=== PATIENT | female | born 1995 | race Two or more races ===

== ENCOUNTER 2022-02-15 06:29 | Inpatient (IN) | payer OTHER ==
[~2022-02-15] VITALS: Ht 175.3 cm; Wt 2.7 kg
[2022-02-15] MEDS ORDERED: PRENATAL TABLE1 EAC1 PO (09:01)
== END 2022-02-17 18:42 | disposition home or self-care (01) | DRG 786 ==
LOC: LDR 06:29 → OB/GYN 11:59
PROVIDERS: ADMIT Specialist; ATTEND Specialist
PROC: 10D00Z1 Extraction of Products of Conception, Low, Open Approach (ICD-10-PCS; principal; 2022-02-17)
PROC: 4A1HXCZ Monitoring of Products of Conception, Cardiac Rate, External Approach (ICD-10-PCS; 2022-02-17)
DX: O76 Abnormality in fetal heart rate and rhythm complicating labor and delivery (principal); O60.14X0 Preterm labor third trimester with preterm delivery third trimester, not applicable or unspecified; O69.81X0 Labor and delivery complicated by cord around neck, without compression, not applicable or unspecified; Z3A.36 36 weeks gestation of pregnancy; Z37.0 Single live birth; Z20.822 Contact with and (suspected) exposure to COVID-19